=== PATIENT | male | born 2000 | race Two or more races ===

== ENCOUNTER 2021-10-04 00:05 | Emergency (ER) | payer SELFPAY ==
[~2021-10-04] VITALS: Ht 185.4 cm; Wt 79.4 kg
[2021-10-04 00:09] VITALS: BP 141/104
== END 2021-10-04 01:44 | disposition home or self-care (01) ==
LOC: ER 00:05
DX: S60.511A Abrasion of right hand, initial encounter (principal); Z91.013 Allergy to seafood; V43.52XA Car driver injured in collision with other type car in traffic accident, initial encounter; Y93.89 Activity, other specified; Y92.410 Unspecified street and highway as the place of occurrence of the external cause; Y99.8 Other external cause status